=== PATIENT | male | born 2000 | race Two or more races ===

== ENCOUNTER 2021-11-15 15:41 | Emergency (ER) | payer MEDICAID ==
[~2021-11-15] VITALS: Ht 162.6 cm; Wt 68.0 kg
[2021-11-15] MEDS ORDERED: KETOROLAC 30MG/ML VIAL IV STA (16:32)
[2021-11-15] MEDS ORDERED: SODIUM CHLORIDE 0.9% 1,000 ML IV ONE (16:45)
[2021-11-15 16:46] LABS: BASOPHILS % 0.5 % (0.0-2.0); EOSINOPHILS % 0.3 % (0.0-5.0); HEMATOCRIT. 40.3 % (42.0-52.0); LYMPHOCYTES % 17.2 % (20.0-50.0); MEAN CORPUSCULAR HEMOGLOBIN 31.2 pg (28.0-32.0); MEAN CORPUSCULAR VOLUME 90.1 fL (80.0-94.0); MEAN PLATELET VOLUME 7.5 fl (7.4-10.4); MONOCYTES % 7.4 % (2.0-8.0); NEUTROPHILS % 74.6 % (40.0-76.0); PLATELET 282 x1000/uL (130-400); RED BLOOD CELL COUNT 4.47 mill/uL (4.7-6.1); RED CELL DISTRIBUTION WIDTH 13.1 % (11.6-14.6)
[2021-11-15 16:53] LABS: CHLORIDE 109 mEq/L (98-107)
[2021-11-15 17:08] LABS: *BARBITURATES SCREEN URINE NEGATIVE (NEGATIVE)
[2021-11-15 17:09] LABS: CANNABINOID URINE SCREEN PRESUMTIVE POSITIVE (NEGATIVE); METHADONE URINE SCREEN NEGATIVE (NEGATIVE); PHENCYCLIDINE URINE SCREEN NEGATIVE (NEGATIVE)
[2021-11-15 17:10] LABS: *BENZODIAZEPINES SCREEN URINE NEGATIVE (NEGATIVE)
[2021-11-15 17:11] LABS: *AMPHETAMINES SCREEN URINE NEGATIVE (NEGATIVE); *COCAINE SCREEN URINE NEGATIVE (NEGATIVE); OPIATES URINE SCREEN NEGATIVE (NEGATIVE)
[2021-11-15] MEDS ORDERED: IBUP-2029 MT (18:06)
[2021-11-15] MEDS ORDERED: LIDO700A15 TP (18:06)
[2021-11-15 18:34] VITALS: BP 119/86
== END 2021-11-15 18:43 | disposition home or self-care (01) ==
LOC: ER 15:41
DX: R07.89 Other chest pain (principal); F12.90 Cannabis use, unspecified, uncomplicated
CPT/HCPCS: 36415; 71045; 80053; 80305; 85025; 85379; 96361; 96374; 99284; J1885; J7030; Z7610

== ENCOUNTER 2022-01-15 13:54 | Emergency (ER) | payer MEDICAID ==
[~2022-01-15] VITALS: Ht 165.1 cm; Wt 66.0 kg
[~2022-01-15 13:54] MED LIST: IBUP-2029 MT; LIDO700A15 TP
[2022-01-15] MEDS ORDERED: TETANUS, DIPHTHERIA, PERTUSSIS VAC/PF 0.5ML (>10YR OLD) IM ONE (15:45)
[2022-01-15] MEDS ORDERED: LIDOCAINE HCL/EPINEPHRINE 1%-EPI 1:100,000 20 ML VIAL INFIL ONE (15:45)
[2022-01-15] MEDS ORDERED: BACITRACIN ZINC OINT UDPKT TOP ONE (15:45)
[2022-01-15] MEDS ORDERED: KETOROLAC 60MG/2ML VIAL IM ONE (16:30)
[2022-01-15] MEDS ORDERED: IBUP-2030 MT (16:45)
[2022-01-15 17:18] VITALS: BP 131/81
== END 2022-01-15 17:18 | disposition home or self-care (01) ==
LOC: ER 13:54
DX: S06.0X1A Concussion with loss of consciousness of 30 minutes or less, initial encounter (principal); S01.01XA Laceration without foreign body of scalp, initial encounter; Y00.XXXA Assault by blunt object, initial encounter; Y93.89 Activity, other specified; Y92.89 Other specified places as the place of occurrence of the external cause
CPT/HCPCS: 12002; 70450; 90471; 90715; 96372; 99284; J1885; J3490

== ENCOUNTER 2022-01-19 14:37 | Emergency (ER) | payer MEDICAID ==
[~2022-01-19] VITALS: Ht 165.1 cm; Wt 66.0 kg
[~2022-01-19 14:37] MED LIST changes: +IBUP-2030 MT
[2022-01-19 14:43] VITALS: BP 121/91
== END 2022-01-19 17:04 | disposition home or self-care (01) ==
LOC: ER 14:54
DX: S01.01XD Laceration without foreign body of scalp, subsequent encounter (principal); J45.909 Unspecified asthma, uncomplicated; Z48.00 Encounter for change or removal of nonsurgical wound dressing; X58.XXXD Exposure to other specified factors, subsequent encounter
CPT/HCPCS: 99281

== ENCOUNTER 2022-01-25 09:40 | Emergency (ER) | payer MEDICAID ==
[~2022-01-25] VITALS: Ht 162.6 cm; Wt 64.0 kg
[2022-01-25 09:44] VITALS: BP 104/68
== END 2022-01-25 11:01 | disposition home or self-care (01) ==
LOC: ER 10:25
DX: Z48.02 Encounter for removal of sutures (principal)
CPT/HCPCS: 99282; Z7610

== ENCOUNTER 2022-06-01 17:04 | Emergency (ER) | payer MEDICAID ==
[~2022-06-01] VITALS: Ht 162.6 cm; Wt 66.0 kg
[2022-06-01 17:37] VITALS: BP 128/69
== END 2022-06-01 22:45 | disposition left against medical advice (07) ==
LOC: ER 17:04
DX: Z53.21 Procedure and treatment not carried out due to patient leaving prior to being seen by health care provider (principal)